=== PATIENT | male | born 1995 | race Caucasian/White ===

== ENCOUNTER 2024-04-28 08:48 | Day surgery (SDC) | payer BC, SELFPAY ==
[2024-04-28] VITALS (22 sets, daily range): BP systolic 105–122; BP diastolic 43–92; PULSE 71–109; RESP 9–18; TEMP 36.4–36.7; O2SAT 91–99; BMI 26.8
[2024-04-28] MEDS: Lactated Ringers 1,000 ML 80 ML IV (09:55)
--- NOTE | 2024-04-28 10:50 | W.ANESPRE ---
General Info Date of Service Date Performed: 04/28/24 Height: 5 ft 8 in Weight: 80 kg Body Mass Index (BMI): 26.8 Surgical Procedure: Operation Date: 04/28/24 11:40 Proposed Procedure Side Surgeon p Circumcision Mono Chauhan MD Meds Allergies and Home Medications Allergies Allergy/AdvReac Type Severity Reaction Status Date / Time No Known Allergies Allergy Verified 04/26/24 12:18 Home Medication ?Medication ?Instructions ?Recorded cetirizine 10 mg capsule (Zyrtec) 10 mg PO DAILY PRN 10/27/23 cholecalciferol (vitamin D3) 50 50 mcg PO DAILY 10/27/23 mcg (2,000 unit) capsule clobetasol 0.05 % topical cream 1 applic topical DAILY 10/27/23 fluoxetine 10 mg capsule 30 mg PO DAILY 10/27/23 biotin 5 mg capsule 5 mg PO DAILY 03/28/24 methylphenidate HCl 18 mg 18 mg PO DAILY 03/28/24 tablet,extended release 24 hr minoxidil 5 % topical foam 1 applic topical BID 03/28/24 (Day[employer] Minoxidil) Current Visit Medications: Current Medications Generic Name Dose Route Start Last Admin Trade Name Freq PRN Reason Stop Dose Admin Ephedrine Sulfate 0 mg 04/28/24 10:25 Ephedrine 25 Mg/5 Ml Syringe IVP 05/28/24 10:24 DIRECTED PRN Ringer's Solution 1,000 mls @ 80 mls/hr 04/28/24 06:00 04/28/24 09:55 IV 05/27/24 23:59 80 mls/hr INFUSION HEATH Administration Cefazolin Sodium/Dextrose 2 gm in 50 mls @ 100 mls/hr 04/28/24 06:00 Ancef Duplex IVPB 04/28/24 16:00 PREOP HEATH IV Miscellaneous Supplies 1 each 04/28/24 06:00 Iv Access IV 05/27/24 23:59 DIRECTED HEATH Naloxone HCl 0 mg 04/28/24 10:25 Naloxone 0.4 Mg/Ml Vial IVP 05/28/24 10:24 PRN PRN Sodium Chloride 0 ml 04/28/24 06:00 Normal Saline Flush 10 Ml Syr IV 05/27/24 23:59 PRN PRN Sodium Chloride 0 ml 04/28/24 06:00 Normal Saline 10 Ml Vial IJ 05/27/24 23:59 DIRECTED PRN Sterile Water 0 ml 04/28/24 06:00 Water,Injection,Sterile 10 Ml Vial IJ 05/27/24 23:59 DIRECTED PRN PFSH Active Problems Active Problems: Problem Status Onset Code Phimosis Acute N47.1 Medical History Medical History ADHD Depression Anxiety Surgical History Surgical History History of lingual frenulectomy 2014 Tobacco Smoking/Tobacco Use Status: Never Alcohol Alcohol Intake: never Substance Use Substance use type: does not use Vital Signs and Lab Results Vital Signs Most Recent Vital Signs in EMR: Most Recent Vital Signs Temp Pulse Resp BP Pulse Ox 36.6 C 83 16 109/92 H 99 04/28/24 09:51 04/28/24 09:51 04/28/24 09:51 04/28/24 09:51 04/28/24 09:51 Lab Results Blood Type / Crossmatch: No Data to Display Complete Blood Count: No Data to Display Complete Metabolic Panel: No Data to Display Liver Function Panel: No Data to Display Coagulation Panel: No Data to Display Cardiac Panel: No Data to Display Arterial Blood Gas: No Data to Display Venous Blood Gas: No Data to Display Pancreas Panel: No Data to Display Thyroid Panel: No Data to Display Infectious Disease: No Data to Display Blood Cultures: No Data to Display Toxicology Panel: No Data to Display Anesthesia Assessment and Plan Anesthesia History Personal History: No History of Anesthesia Complications Family History: No Family History of Anesthesia Complications Exercise Tolerance Exercise Tolerance: Metabolic Equivalents>4 Pertinent Negatives Pertinent Negatives: No Symptoms of GERD Cardiac & Pulmonary Exam Cardiac Exam: Normal S1/S2 Heart Sounds Pulmonary Exam: Clear Bilateral Breath Sounds Implantable Cardiac Device Does patient have a Pacemaker or an ICD?: No Airway Exam Known Difficult Airway: No Mallampati Class: 2 Mouth Opening: Normal (> 3cm) Thyromental Distance: Greater than 3 cm Neck Range of Motion: Full ROM Neck Circumference: Normal Teeth Condition: Normal Dentition ASA Classification ASA Score: ASA 2 Emergency Case?: No NPO Status NPO Status: NPO Clears >2 hours, Solids >8 hours Anesthesia Plan Resuscitation Status: Full Code Anesthesia Technique: General Anesthesia Airway Planned: Natural Airway Monitors Used: Standard Monitors
--- NOTE | 2024-04-28 11:45 | W.PM.HP.N ---
Date of service: 04/28/24 Time of Service: 11:45 Assessment and Plan Assessment and plan (1) Phimosis: Status: Acute Assessment and plan: We will move ahead with circumcision. History of Present Illness History of Present Illness Chief Complaint: Phimosis Narrative: This is a 28-year-old gentleman who presents with difficulty retracting the foreskin. He also has pain when he obtains an erection. On examination, he has phimosis. He has had a frenectomy previously. He has failed conservative management with topical steroid cream. He presents for a circumcision. Review of Systems Narrative: No fevers or chills No vision change or dysphasia No diabetes or thyroid dysfunction No shortness of breath, cough or hemoptysis No chest pain or palpitations No hepatitis, ulcers, jaundice, diarrhea or constipation No seizures, strokes or peripheral neuropathy No bleeding disorders or anemia No gout PFSH All Active Problems Phimosis (Acute) Medical History ADHD Depression Anxiety Surgical History History of lingual frenulectomy 2015 Social History Smoking/Tobacco Use Status: Never Smoking risk assessment performed?: Yes Alcohol Intake: never Substance use type: does not use Housing: apartment Do you feel safe at home: Yes Do you feel safe in your relationship?: Yes Meds Allergies and Home Medications Allergies Allergy/AdvReac Type Severity Reaction Status Date / Time No Known Allergies Allergy Verified 04/26/24 12:18 Home Medications ?Medication ?Instructions ?Recorded ?Confirmed ?Type cetirizine 10 mg capsule (Zyrtec) 10 mg PO DAILY PRN 10/27/23 04/26/24 History cholecalciferol (vitamin D3) 50 50 mcg PO DAILY 10/27/23 04/26/24 History mcg (2,000 unit) capsule clobetasol 0.05 % topical cream 1 applic topical DAILY 10/27/23 04/26/24 History fluoxetine 10 mg capsule 30 mg PO DAILY 10/27/23 04/26/24 History biotin 5 mg capsule 5 mg PO DAILY 03/28/24 04/26/24 History methylphenidate HCl 18 mg 18 mg PO DAILY 03/28/24 04/26/24 History tablet,extended release 24 hr minoxidil 5 % topical foam 1 applic topical BID 03/28/24 04/26/24 History ([employer] Minoxidil) Exam Const General: cooperative Neck Neck: supple Resp Effort & Inspection: normal respiratory effort Auscultation: clear to auscultation bilaterally Cardio Rate: regular rate Rhythm: regular rhythm GI Palpation: soft and no masses Penis: phimosis Neuro General: patient alert, patient awake and patient oriented x3 Results Last Vital Signs Temp 36.6 C 04/28/24 09:51 Pulse 83 04/28/24 09:51 Resp 16 04/28/24 09:51 BP 109/92 H 04/28/24 09:51 Pulse Ox 99 04/28/24 09:51 Time Spent Time spent with Patient: <40 minutes Time was spent: other
[2024-04-28] MEDS: ceFAZolin 2 GM/50 ML BAG IVPB (12:08)
[2024-04-28] MEDS: Bupivacaine 0.5% Pres-Free 30 ML VIAL (12:24)
--- NOTE | 2024-04-28 12:57 | W.PM.DSUDISC ---
Date of service: 04/28/24 Time of Service: 12:57 Discharge Plan Disposition Patient Disposition: Home Condition: Stable Discharge Details Reason For Visit: circumcision Attending Provider: Mono Chauhan Primary Care Provider: Katherine Arnold Home Meds and New Rx's Prescriptions: New tramadol 50 mg tablet 50 mg PO Q8H PRNQty: 12 0RF Rx Instructions: may take with tylenol and OTC NSAIDs No Action biotin 5 mg capsule 5 mg PO DAILY minoxidil [[employer] Minoxidil] 5 % foam 1 applic topical BID methylphenidate HCl 18 mg tablet extended release 24hr 18 mg PO DAILY clobetasol 0.05 % cream 1 applic topical DAILY fluoxetine 10 mg capsule 30 mg PO DAILY cholecalciferol (vitamin D3) 50 mcg (2,000 unit) capsule 50 mcg PO DAILY Zyrtec 10 mg capsule 10 mg PO DAILY PRN Discharge Instructions Additional Instructions: May remove the penile dressing tomorrow morning (if the dressing has not come off before then). Please get the dressing wet before trying to remove it Okay to shower starting tomorrow I have sent in a prescription for tramadol that you can use for pain. The medication can be used at the same time as Tylenol or [id number] ibuprofen Follow-up appointment in 1 to 2 weeks for wound check Activity:: Activity as Tolerated Remove Dressings/Wound Care:: 24 hours Shower/Bathe:: 24 hours Diet:: As Tolerated Discharge Orders Discharge Orders: Discharge Order (Routine); Ordered 04/28/24 Ordered By: Mono Chauhan DS: Diagnosis Discharge Diagnosis (1) Phimosis: Status: Acute
--- NOTE | 2024-04-28 13:01 | W.PM.OP ---
Date of service: 04/28/24 Time of Service: 13:02 Operative Note Operative Note DATE OF PROCEDURE: 04/28/24 PRE-OP DIAGNOSIS: Phimosis POST-OP DIAGNOSIS: same PROCEDURE: circumcision SURGEON: Mono Chauhan ANESTHESIA TYPE: Local By Surgeon and General:No Airway Refer to Anesthesia Record ESTIMATED BLOOD LOSS: 5 PATHOLOGY: none sent COMPLICATIONS: None Patient was transported to: PACU Patient's condition: stable Implants: none Indications: This is a 28-year-old gentleman who has a history of difficulty retracting the foreskin. He also has some discomfort when he develops an erection. Previously, he was treated with a frenulectomy which was somewhat helpful. He has failed conservative management with topical steroid cream. He presents for circumcision Findings: Thickened penile skin Procedure Description: The patient was given IV antibiotics and brought to the operating room on 04/28/2024. After successful induction of general anesthesia, he was placed in the supine position. His genitalia was prepped and draped. A penile field block was performed using quarter percent Marcaine. The block was performed at approximately the level of the coronal sulcus. A circumferential incision was made on the outer aspect of the foreskin just above the level of the coronal sulcus. The skin was then retracted and a second circumferential incision was made on the inner aspect of the foreskin about 2 cm from the coronal sulcus. The edges of the 2 incisions were then connected and the redundant skin was removed. Any bleeding points that were encountered were cauterized using the Bovie. The skin was then reapproximated using simple interrupted 4-0 chromic sutures. The patient tolerated this procedure well with no complications. A Vaseline gauze dressing was applied to the incision site. A dorsal penile nerve block was performed using quarter percent Marcaine as well. He was taken to the recovery room in stable condition.
--- NOTE | 2024-04-28 14:37 | W.ANESPOSTOP ---
Postoperative Evaluation Date, Time and Location Date Performed: 04/28/24 Time Performed: 14:37 Patient Location: Day Surgery Unit Vital Signs Most Recent Imported Vital Signs: Most Recent Vital Signs Temp Pulse Resp BP Pulse Ox 36.6 C 71 16 113/69 95 04/28/24 14:12 04/28/24 14:12 04/28/24 14:12 04/28/24 14:12 04/28/24 14:12 Pain Score Most Recent Pain Score: Most Recent Pain Score Pain Level 0 04/28/24 14:12 Assessment Mental Status: Awake (Alert & Oriented to Patient Baseline) Airway and Respiratory Function: Patent airway with normal (patient baseline) respiratory exam Cardiovascular Function: Hemodynamically Stable Hydration Status: Adequately Hydrated Nausea & Vomiting: No Nausea or Vomiting Pain: Pain is tolerable per patient Peripheral Nerve Block: Patient did not receive a nerve block
--- NOTE | 2024-04-28 15:51 | NUR.NOTE ---
Patient asked to get up to go to the bathroom. Was able to get him to the bathroom, he rang the call light due to feeling light headed. I helped the patient stand up from the toilet and walk back to the room and get back on the stretcher. Gave patient a cool wet wash cloth that was placed on the forehead and gave the bear hugger machine with cool air blowing on the patient as well. Noticed some blood in the toilet that appeared to be a little more than 2 tablespoons, and a few drops on the floor while walking back to the room. Placed a call to Dr. Chauhan via his nurse to see if the bleeding is to be expected. Will await his return call.
== END 2024-04-28 16:59 | disposition home or self-care (01) ==
PROVIDERS: PCP Family Medicine; Visit Provider Urology
PROC: (CPT 54161; principal; 2024-04-28 11:30)
DX: N47.1 Phimosis (principal)
CPT/HCPCS: 54161; J0131; J0665; J0690; J1100; J1885; J2001; J2405; J2704; J3010